=== PATIENT | female | born 1980 | race Caucasian/White ===

== ENCOUNTER 2019-02-19 15:37 | Outpatient (CLI) ==
--- NOTE | 2019-02-19 16:43 | DI ---
EXAM: RIGHT FOOT, four views HISTORY: Foot pain. FINDINGS: Frontal, oblique, nonweight bearing lateral and weight bearing lateral projections were ac quired and submitted. Bone joint structures appear normal. There is no fracture, arthropathy or sof t tissue finding. No joint effusion. IMPRESSION: 1. Within normal limits.
--- NOTE | 2019-02-19 16:43 | DI ---
Examination: Right hip two views Clinical history: Pain Hip joint spaces are preserved. The tension and compression trabeculae are intact. There is no abno rmal soft tissue calcification. Articular surfaces appear smooth. Impression: 1. No significant osseous abnormality involving right hip joint.
--- NOTE | 2019-02-19 16:44 | DI ---
Examination: Left foot three views with weightbearing. Clinical history: Pain Joint spaces are preserved. Cortices are smooth. Bone density is normal. There is pes planum morph ology of the foot. Small entheseophyte is noted along the inferior calcaneus at the attachment of th e plantar aponeurosis. Impression: 1. Small calcaneal spur. 2. No other significant left foot radiographic abnormality.
== END 2019-02-19 15:38 | disposition home or self-care (01) ==
LOC: RAD 15:37
PROVIDERS: ATTEND Podiatrist
DX: M77.31 Calcaneal spur, right foot (principal); M77.32 Calcaneal spur, left foot; M25.551 Pain in right hip; B35.1 Tinea unguium
CPT/HCPCS: 36415; 80076